=== PATIENT | female | born 1965 | race Caucasian/White ===

== ENCOUNTER 2017-03-22 20:33 | Emergency (ER) | payer OTHER ==
[2017-03-22] MEDS ORDERED: Ibuprofen TAB* 600 MG PO ONE (21:32)
[2017-03-22 21:37] VITALS: BP 134/68
--- NOTE | 2017-03-22 21:38 | ED ---
Back Pain - HPI Summary HPI Summary: 52 yr old with 6/10 left side lower back pain that goes down the back of her left leg. She has had exact same symptoms before, and has history of sciatica. She states she was crawling over her dog at 3 am in the morning on her bed and pulled her back doing this. She ran out of ibuprofen this afternoon. Denies bowel or bladder incontinence. Denies fever, chills. Denies focal weakness or numbness in the legs. No other complaints. - History of Current Complaint Stated Complaint: LOWER BACK/LEG PAIN Time Seen by Provider: 03/22/17 21:25 Hx Last Menstrual Period: - Allergies/Home Medications Allergies/Adverse Reactions: Allergies Allergy/AdvReac Type Severity Reaction Status Date / Time Phenazopyridine Allergy Intermediate See Comment Verified 03/22/17 21:37 [From Pyridium] Aspirin AdvReac Mild GI Upset Verified 03/22/17 21:37 PMH/Surg Hx/FS Hx/Imm Hx Endocrine/Hematology History: Denies: Hx Diabetes, Hx Thyroid Disease Cardiovascular History: Reports: Hx Hypertension Respiratory History: Denies: Hx Asthma, Hx Chronic Obstructive Pulmonary Disease (COPD) GI History: Denies: Hx Ulcer - Surgical History Surgery Procedure, Year, and Place: tubal ligation Infectious Disease History: Denies: Hx Clostridium Difficile, Hx Hepatitis, Hx Human Immunodeficiency Virus (HIV), Hx of Known/Suspected MRSA, Hx Shingles, Hx Tuberculosis, Hx Known/ Suspected VRE, Hx Known/Suspected VRSA, History Other Infectious Disease - Family History Known Family History: Positive: None - Social History Alcohol Use: Occasionally Hx Substance Use: No Substance Use Type: Reports: None Smoking Status (MU): Former Smoker Length of Time of Smoking/Using Tobacco: Quit 5 months ago Review of Systems Constitutional: Negative Negative: Fever, Chills Positive: Other - back pain Neurological: Negative Psychological: Normal All Other Systems Reviewed And Are Negative: Yes Physical Exam Triage Information Reviewed: Yes Vital Signs Reviewed: Yes Appearance: Positive: Well-Appearing, No Pain Distress Skin: Positive: Warm, Skin Color Reflects Adequate Perfusion Head/Face: Positive: Normal Head/Face Inspection ENT: Positive: Normal ENT inspection Respiratory/Lung Sounds: Positive: Clear to Auscultation, Breath Sounds Present Cardiovascular: Positive: Normal, RRR Abdomen Description: Positive: Nontender Musculoskeletal: Positive: Normal, Other - no midline back tendernes Neurological: Positive: Normal, Sensory/Motor Intact, Alert, Oriented to Person Place, Time, CN Intact II-III Psychiatric: Positive: Normal Back Pain Course/Dx - Course Course Of Treatment: 52 yr old with sciatica will rx with motrin and flexeril - Diagnoses Provider Diagnoses: Sciatica Discharge - Discharge Plan Condition: Good Disposition: HOME Prescriptions: Cyclobenzaprine TAB* [Flexeril 10 MG TAB*] 10 mg PO BID PRN #14 tab PRN Reason: Pain Scale 1-5 Ibuprofen TAB* [Motrin TAB* 600 MG] 600 mg PO Q8H PRN #20 tab PRN Reason: Pain - Back Referrals: Jeanne Caldwell MD [Primary Care Provider] - 1 Day
[2017-03-22] MEDS ORDERED: Cyclobenzaprine TAB* 10 MG PO ONE (21:41)
== END 2017-03-22 21:51 | disposition home or self-care (01) ==
LOC: UCCORT 20:33
DX: M54.32 Sciatica, left side (principal); I10 Essential (primary) hypertension; Z87.891 Personal history of nicotine dependence
CPT/HCPCS: 99212; A9270-GY; G0463

== ENCOUNTER 2017-07-18 07:57 | Emergency (ER) | payer OTHER ==
[2017-07-18 08:08] VITALS: BP 139/82
--- NOTE | 2017-07-18 11:39 | UC ---
Abdominal Pain Female HPI - HPI Summary HPI Summary: 2-3 week of intermmtant rlq dull burning pain that radiates toward the groin and up to the ruq. pt also admits to 2 days without a bm and increased heartburn. Has been getting worse over the that last 3 days with constant base pain of 2/10 that gets as bad as 7/10. currently 2/10. no other sx meds reviewed during this visit. - History of Current Complaint Chief Complaint: UCAbdominalPain Stated Complaint: RT SIDE ABD PAIN Time Seen by Provider: 07/18/17 08:22 Hx Obtained From: Patient Hx Last Menstrual Period: NOVASURE ?: No Onset/Duration: Gradual Onset, Lasting Weeks - 3, Still Present, Worse Since - 3 days Timing: Constant Severity Initially: Moderate Severity Currently: Moderate Pain Intensity: 2 Location: Discrete At: RLQ Radiates: Yes Radiates to: Inguinal, Other - ruq Character: Burning, Dull Aggravating Factor(s): Nothing Alleviating Factor(s): Nothing Associated Signs and Symptoms: Positive: Constipation. Negative: Diaphoresis, Fever, Cough, Chest Pain, Dizzy, Back Pain, Blood in Stool, Urinary Symptoms, Decreased Appetite, Vaginal Bleeding, Vaginal Discharge, Nausea, Vomiting, Diarrhea Allergies/Adverse Reactions: Allergies Allergy/AdvReac Type Severity Reaction Status Date / Time Phenazopyridine Allergy Intermediate See Comment Verified 07/18/17 08:08 [From Pyridium] Aspirin AdvReac Mild GI Upset Verified 07/18/17 08:08 PMH/Surg Hx/FS Hx/Imm Hx Previously Healthy: Yes - Surgical History Surgical History: Yes Surgery Procedure, Year, and Place: tubal ligation, uterine ablasion - Family History Known Family History: Positive: Cardiac Disease, Hypertension, Diabetes - Social History Lives: With Family Alcohol Use: Occasionally Substance Use Type: None Smoking Status (MU): Former Smoker Type: Cigarettes Length of Time of Smoking/Using Tobacco: Quit 5 months ago - Immunization History Most Recent Influenza Vaccination: none Review of Systems Constitutional: Negative Skin: Negative ENT: Negative Respiratory: Negative Cardiovascular: Negative Gastrointestinal: Abdominal Pain, Other - constipation, heartburn Musculoskeletal: Negative Neurological: Negative Psychological: Negative All Other Systems Reviewed And Are Negative: Yes Physical Exam Triage Information Reviewed: Yes Appearance: Well-Appearing, No Pain Distress, Well-Nourished Vital Signs: Initial Vital Signs Temp 97.8 F 07/18/17 08:00 Pulse 62 07/18/17 08:00 Resp 18 07/18/17 08:00 BP 139/82 07/18/17 08:00 Pulse Ox 99 07/18/17 08:00 Vital Signs Reviewed: Yes Eyes: Positive: Conjunctiva Clear. Negative: Discharge ENT: Positive: Hearing grossly normal. Negative: Muffled/hoarse voice Neck: Positive: Supple Respiratory: Positive: Lungs clear, Normal breath sounds, No respiratory distress, No accessory muscle use Cardiovascular: Positive: RRR, No Murmur Abdomen Description: Positive: Soft, McBurney's Point Tenderness. Negative: Nontender - RLQ tender, CVA Tenderness (R), CVA Tenderness (L), Distended, Guarding, Peritoneal Signs Musculoskeletal Exam: Normal Neurological: Positive: Alert, Muscle Tone Normal Psychological: Positive: Age Appropriate Behavior Skin Exam: Normal Abd Pain Female Course/Dx - Course Course Of Treatment: elevated bp likely d/t pt's condition - Differential Dx/Diagnosis Differential Diagnosis: Appendicitis, Constipation, Irritable Bowel Syndrome, Ovarian Cyst, Renal Colic, Urinary Tract Infection Provider Diagnoses: hematuria, abd pain unknown abhay - r/o appy, ELEVATED BP WITHOUT DX OF HTN Discharge - Discharge Plan Condition: Stable Disposition: AGAINST MEDICAL ADVICE Patient Education Materials: Acute Abdominal Pain (ED), Hematuria (ED) Referrals: Baljeet Salgado MD [Primary Care Provider] - Additional Instructions: YOU ARE LEAVING AGAINST MEDICAL ADVICE. WE ARE CONCERNED ABOUT APPENDICITIS. THIS IS A VERY SERIOUS CONDITION THAT CAN LEAD TO WORSENING INFECTION, INCREASED PAIN, RUPTURE, SEPSIS AND . SO WE ARE RECOMMENDING THAT YOU GO TO THE ED IMMEDIATELY FOR COMPLETE EVALUATION AND TREATMENT. DO NOT EAT OR DRINK ANYTHING UNTIL AFTER YOUR EVALUATION.
== END 2017-07-18 09:40 | disposition left against medical advice (07) ==
LOC: UCCORT 07:57
DX: R31.9 Hematuria, unspecified (principal); R10.31 Right lower quadrant pain; R10.11 Right upper quadrant pain; R03.0 Elevated blood-pressure reading, without diagnosis of hypertension; K59.00 Constipation, unspecified; Z88.6 Allergy status to analgesic agent; Z88.8 Allergy status to other drugs, medicaments and biological substances; Z87.891 Personal history of nicotine dependence
CPT/HCPCS: 81003; 99212; G0463

== ENCOUNTER 2018-06-04 11:10 | Emergency (ER) | payer OTHER ==
[2018-06-04 12:22] VITALS: BP 123/71
[2018-06-04] MEDS ORDERED: Ketorolac INJ* 60 MG/2 ML VIAL IM ONE (12:31)
--- NOTE | 2018-06-04 12:33 | UC ---
[facility] Dental HPI - HPI Summary HPI Summary: left lower gum pain tenderness and swelling--has chronic issues with teeth is under care of Dr. Judd-pain began Tuesday and awoke today with erythema and swelling - History of Current Complaint Hx Obtained From: Patient Hx Last Menstrual Period: NOVASURE ?: No Onset/Duration: Sudden Onset Pain Intensity: 9 Pain Scale Used: 0-10 Numeric Aggravating Factor(s): Heat, Cold, Chewing Alleviating Factor(s): Nothing Related History: Previous Dental Care on Same Tooth, Swelling <Kaela Perera - Last Filed: 06/04/18 15:03> <Nilo Hobbs - Last Filed: 06/05/18 06:59> - History of Current Complaint Chief Complaint: UCDentalProblem Stated Complaint: DENTAL COMP Time Seen by Provider: 06/04/18 12:25 - Allergies/Home Medications Allergies/Adverse Reactions: Allergies Allergy/AdvReac Type Severity Reaction Status Date / Time aspirin Allergy GI Upset Verified 06/04/18 12:20 phenazopyridine Allergy See Comment Verified 06/04/18 12:20 Home Medications: Home Medications Acetaminophen [Tylenol Extra Strength] 1,000 mg PO Q4HR PRN 06/04/18 [History Confirmed 06/04/18] Famotidine TAB* [Pepcid 20 MG TAB*] 20 mg PO BID 06/04/18 [History Confirmed 07/15] PMH/Surg Hx/FS Hx/Imm Hx Previously Healthy: No Cardiovascular History: Hypertension GI/ History: Gastroesophageal Reflux Psychological History: Depression - Surgical History Surgical History: Yes Surgery Procedure, Year, and Place: tubal ligation, uterine ablasion - Family History Known Family History: Positive: None, Cardiac Disease, Hypertension, Diabetes - Social History Occupation: Employed Full-time Lives: With Family Alcohol Use: Occasionally Substance Use Type: None Smoking Status (MU): Former Smoker Type: Cigarettes Amount Used/How Often: socially Length of Time of Smoking/Using Tobacco: Quit 5 months ago - Immunization History Most Recent Influenza Vaccination: none <Kaela Perera - Last Filed: 06/04/18 15:03> Review of Systems Constitutional: Negative - left lower gum and teeth Skin: Negative Eyes: Negative ENT: Dental Pain - right lower Respiratory: Negative Cardiovascular: Negative Gastrointestinal: Negative Genitourinary: Negative Motor: Negative Neurovascular: Negative Musculoskeletal: Negative Neurological: Negative Psychological: Negative Is Patient Immunocompromised?: No All Other Systems Reviewed And Are Negative: Yes <Kaela Perera - Last Filed: 06/04/18 15:03> Physical Exam Triage Information Reviewed: Yes Appearance: Well-Appearing, No Pain Distress, Well-Nourished Vital Signs: Initial Vital Signs Temp 98.1 F 06/04/18 12:16 Pulse 66 06/04/18 12:16 Resp 17 06/04/18 12:16 BP 123/71 06/04/18 12:16 Pulse Ox 100 06/04/18 12:16 Vital Signs Reviewed: Yes Eye Exam: Normal Eyes: Positive: Conjunctiva Clear ENT Exam: Normal ENT: Positive: Normal ENT inspection, Hearing grossly normal, Pharynx normal, TMs normal, Dental tenderness, Uvula midline. Negative: Nasal congestion, Tonsillar swelling, Tonsillar exudate, Trismus, Muffled voice, Hoarse voice, Sinus tenderness Dental Exam: Normal Dental: Positive: Abscess @ - left lower jaw Neck exam: Normal Neck: Positive: Supple, Nontender, No Lymphadenopathy Respiratory Exam: Normal Respiratory: Positive: Chest non-tender, No respiratory distress, No accessory muscle use Cardiovascular Exam: Normal Cardiovascular: Positive: No Murmur, Pulses Normal, Brisk Capillary Refill Musculoskeletal Exam: Normal Musculoskeletal: Positive: Strength Intact, ROM Intact, No Edema Neurological Exam: Normal Neurological: Positive: Alert, Muscle Tone Normal Psychological Exam: Normal Skin Exam: Normal <Kaela Perera - Last Filed: 06/04/18 15:03> Vital Signs: Initial Vital Signs Temp 98.1 F 06/04/18 12:16 Pulse 66 06/04/18 12:16 Resp 17 06/04/18 12:16 BP 123/71 06/04/18 12:16 Pulse Ox 100 06/04/18 12:16 <Nilo Hobbs - Last Filed: 06/05/18 06:59> Dental Complaint Course/Dx - Course Course Of Treatment: continue peridex, pain control, amoxicillin, follow with Dr. Judd in am - Differential Dx/Diagnosis Provider Diagnoses: Left lower gum abscess <Kaela Perera - Last Filed: 06/04/18 15:03> Discharge - Sign-Out/Discharge Documenting (check all that apply): Discharge/Admit/Transfer - Billing Disposition and Condition Condition: STABLE Disposition: Home <Kaela Perera - Last Filed: 06/04/18 15:03> - Billing Disposition and Condition Condition: STABLE Disposition: Home <Nilo Hobbs - Last Filed: 06/05/18 06:59> - Discharge Plan Condition: Stable Disposition: HOME Prescriptions: Amoxicillin PO (*) [Amoxicillin 500 MG CAP*] 500 mg PO TID #30 cap Ibuprofen TAB* [Motrin TAB* 600 MG] 600 mg PO Q6H PRN #40 tab PRN Reason: pain Patient Education Materials: Dental Abscess (ED), Toothache (ED) Referrals: Baljeet Salgado MD [Primary Care Provider] - Additional Instructions: Follow with your dental provider Tuesday Morning Per institutional requirements, I have reviewed the chart, however, I was not consulted specifically or made aware of this patient by the above midlevel provider. I did not personally evaluate, interact with , or disposition this patient.
== END 2018-06-04 13:12 | disposition home or self-care (01) ==
LOC: UCCORT 11:10
DX: K05.219 Aggressive periodontitis, localized, unspecified severity (principal); Z88.6 Allergy status to analgesic agent; Z88.8 Allergy status to other drugs, medicaments and biological substances; I10 Essential (primary) hypertension; K21.9 Gastro-esophageal reflux disease without esophagitis; Z87.891 Personal history of nicotine dependence
CPT/HCPCS: 96372; 99212; G0463; J1885

== ENCOUNTER 2019-05-07 17:16 | Emergency (ER) | payer BC, OTHER ==
[2019-05-07 17:44] VITALS: BP 133/71
--- NOTE | 2019-05-07 18:05 | UC ---
Upper Extremity HPI - HPI Summary HPI Summary: 54 year old female no PMH no trauma, no known injury presents with shoulder pain x months, + difficulty sleeping, pain with overhead motions, lifting anything abduction with weights, noted past day to have mild numbness in fingers , intermittent, resolved. no h/o neck pain or trauma Better with motrin, aspircreme, minimally. - History of Current Complaint Chief Complaint: UCUpperExtremity Stated Complaint: RIGHT SHOULDER COMPLAINT Time Seen by Provider: 05/07/19 17:47 Hx Obtained From: Patient Hx Last Menstrual Period: NOVASURE ?: No Onset/Duration: Gradual Onset, Lasting Weeks, Still Present Severity Initially: Moderate Severity Currently: Moderate Pain Intensity: 4 Pain Scale Used: 0-10 Numeric Location Of Pain: Is Discrete @ - right shoulder Character: Sharp, Dull, Aching Aggravating Factor(s): Movement, Lifting, Abduction Associated Signs And Symptoms: Positive: Weakness, Numbness/Tingling - Allergies/Home Medications Allergies/Adverse Reactions: Allergies Allergy/AdvReac Type Severity Reaction Status Date / Time aspirin Allergy GI Upset Verified 05/07/19 17:36 phenazopyridine Allergy See Comment Verified 05/07/19 17:36 Home Medications: Home Medications Cholecalciferol TAB* [Vitamin D TAB*] 2,000 unit PO DAILY 05/07/19 [History Confirmed 05/07/19] Ibuprofen TAB* [Advil TAB*] 200 mg PO Q6H PRN 05/07/19 [History Confirmed ] PMH/Surg Hx/FS Hx/Imm Hx Previously Healthy: Yes - Surgical History Surgical History: Yes Surgery Procedure, Year, and Place: tubal ligation, uterine ablasion. cholecystectomy 09/12/2018 - Family History Known Family History: Positive: None, Cardiac Disease, Hypertension, Diabetes - Social History Alcohol Use: Occasionally Substance Use Type: None Smoking Status (MU): Current Every Day Smoker Type: Cigarettes Amount Used/How Often: socially Length of Time of Smoking/Using Tobacco: on and off since age 15 yrs. Have You Smoked in the Last Year: Yes - Immunization History Most Recent Influenza Vaccination: none Review of Systems All Other Systems Reviewed And Are Negative: Yes Musculoskeletal: Positive: Arthralgia, Decreased ROM, Myalgia Is Patient Immunocompromised?: No Physical Exam Triage Information Reviewed: Yes Appearance: Well-Appearing, No Pain Distress, Well-Nourished Vital Signs: Initial Vital Signs Temp 97.5 F 05/07/19 17:40 Pulse 68 05/07/19 17:40 Resp 16 05/07/19 17:40 BP 133/71 05/07/19 17:40 Pulse Ox 100 05/07/19 17:40 Vital Signs Reviewed: Yes Eyes: Positive: Conjunctiva Clear Neck: Positive: Supple, Nontender, No Lymphadenopathy, Other: - no paraspinal/ spinal tenderness. Negative: Nuchal Rigidity, Enlarged Nodes @ Musculoskeletal: Positive: No Edema, ROM Limited @ - FF to 150 with pain, abd to 110 with pain ext/ int to 90/ 50, Other: - pain with supraspin testing, neg infraspin testing, + TTP over biceps tendon, AC joint, + gaviria, neg bear, belly. Psychological Exam: Normal Skin Exam: Normal Skin: Positive: Other - no open wounds or sores Upper Extremity Course/Dx - Course Course Of Treatment: RC strain, follow up with ortho, NSAIDs given. - Differential Dx/Diagnosis Differential Diagnosis/HQI/PQRI: Burn, Bursitis, Strain, Sprain Provider Diagnosis: Strain of tendon of right rotator cuff Discharge - Sign-Out/Discharge Documenting (check all that apply): Patient Departure All imaging exams completed and their final reports reviewed: No Studies - Discharge Plan Condition: Good Disposition: HOME Prescriptions: Meloxicam [Mobic] 7.5 mg PO BID #45 tablet Patient Education Materials: Rotator Cuff Injury (ED), Exercises for Shoulder Flexion and Extension (ED), Exercises for Internal and External Shoulder Rotation (ED), Exercises for Shoulder Abduction and Adduction (ED) Referrals: Baljeet Salgado MD [Primary Care Provider] - Nikita Yates MD [Medical Doctor] - (Follow up for evaluation, steroid injection ) Additional Instructions: - Meloxicam 7.5mg twice daily as needed for pain - Gentle range of motion exercises - Follow up with orthopedics for possible steroid injection - Billing Disposition and Condition Condition: GOOD Disposition: Home
== END 2019-05-07 18:32 | disposition home or self-care (01) ==
LOC: UCCORT 17:16
DX: S46.011A Strain of muscle(s) and tendon(s) of the rotator cuff of right shoulder, initial encounter (principal); X58.XXXA Exposure to other specified factors, initial encounter; Y92.9 Unspecified place or not applicable; F17.210 Nicotine dependence, cigarettes, uncomplicated; Z88.6 Allergy status to analgesic agent
CPT/HCPCS: 99212; G0463